=== PATIENT | female | born 1995 | race Caucasian/White ===

== ENCOUNTER 2019-10-03 00:55 | Inpatient (IN) | payer OTHER ==
[2019-10-03] MEDS ORDERED: DEXTROSE 5%-LACTATED RINGERS 500 ML IV ONE (01:30)
[2019-10-03] MEDS ORDERED: DEXTROSE 5%-LACTATED RINGERS 1,000 ML IV SCH (02:00)
[2019-10-03 02:28] LABS: BASO % 0.9 % (0-2.0); EOS % 0.5 % (0-4.5); HEMATOCRIT 36.1 % (32.4-45.2); HEMOGLOBIN 11.6 GM/dL (10.7-15.3); LYMPH % 25.4 % (8-40); MCH 27.5 pg (25.7-33.7); MCHC 32.2 g/dl (32.0-36.0); MEAN CELL VOLUME 85.2 fl (80-96); MEAN PLT VOLUME 11.1 fl (7.5-11.1); NEUT % 66.2 % (42.8-82.8); PLATELET COUNT 253 K/MM3 (134-434); RBC 4.23 M/mm3 (3.60-5.2); RDW 16.4 % (11.6-15.6); WHITE BLOOD COUNT 9.1 K/mm3 (4.0-10.0)
[2019-10-03 02:42] LABS: INR 1.02 (0.83-1.09)
[2019-10-03 02:45] LABS: ACTIVATED PTT 27.9 SECONDS (25.2-36.5)
[2019-10-03 02:50] LABS: BLOOD UREA NITROGEN 15.8 mg/dL (7-18); CALCIUM 8.6 mg/dL (8.5-10.1); CREATININE 0.8 mg/dL (0.55-1.3); POTASSIUM 4.3 mmol/L (3.5-5.1)
[2019-10-03] MEDS ORDERED: BUTORPHANOL TARTRATE 1 MG/ML VIAL IVPB ONE (03:00)
[2019-10-03] MEDS ORDERED: PROMETHAZINE HCL 25 MG/1 ML VIAL IVPB ONE (03:00)
[2019-10-03 03:28] VITALS: BMI 34.0
[2019-10-03] MEDS ORDERED: ELECTROLYTE-148 SOLN 1,000 ML IV SCH ×2 (04:00→11:30)
[2019-10-03] MEDS ORDERED: PROMETHAZINE HCL 25 MG/1 ML VIAL ONE (09:12)
[2019-10-03] MEDS ORDERED: BUTORPHANOL TARTRATE 1 MG/ML VIAL ONE ×2 (09:12)
[2019-10-03] MEDS ORDERED: LIDO 2%/EPI 1:200000 PRESRVFRE (20 ML SDVIAL) ONE ×2 (11:20→13:22)
[2019-10-03] MEDS ORDERED: BUPIVACAINE HCL/PF 0.25% (2.5MG/ML) 10 ML VIAL ONE (11:20)
[2019-10-03] MEDS ORDERED: FENTANYL/BUPIVACAINE/NS/PF - PCEA - 50 ML DISP.SYRIN EP ONE ×2 (11:21→11:23)
[2019-10-03] MEDS ORDERED: NALOXONE HCL 0.4 MG/ML VIAL IVPUSH PRN (12:05)
[2019-10-03] MEDS ORDERED: FENTANYL/BUPIVACAINE/NS/PF - PCEA - 50 ML DISP.SYRIN EP SCH (12:15)
--- NOTE | 2019-10-03 12:17 | HP ---
Past Medical History - Primary Care Physician PCP:: Parminder Johnson - Admission Chief Complaint: 23yo P0 with at EGA 40w0d admitted with spontaneous early labor and SROM since 11pm on 10/02/19. History of Present Illness: complicated by: Excessive weight gain 63 lbs during this Episodes of chest pain and SOB that resolved now. Cardiac echo was normal. Pt is now asymptomatic. History Source: Patient, Medical Record Limitations to Obtaining History: No Limitations - Past Medical History FORMULATION SCIENTIST: No: Alzheimer's, CVA, Dementia, Migraine, Multiple Sclerosis, Peripheral Neuropathy, Parkinson's, Seizure, Syncope, TIA, Vertigo, Other Cardiovascular: No: AFIB, Aneurysm, Aortic Insufficiency, Aortic Stenosis, CAD, CHF, Deep Vein Thrombosis, HTN, Hyperlipdemia, RI, Mitral Insufficiency, Mitral Stenosis, Murmur, Pulmonary Hypertension, Other Pulmonary: No: Asthma, Bronchitis, Cancer, COPD, O2 Dependent, Pneumonia, Previously Intubated, Pulmonary Embolus, Pulmonary Fibrosis, Sleep Apnea, Other Gastrointestinal: No: Ascites, Cancer, Constipation, Crohn's Disease, Diverticulitis, Diverticulosis, Esophageal Varices, Gastritis, GERD, GI Bleed, Hemorrhoids, Hiatal Hernia, Inflamatory Bowel Disease, Irritable Bowel Disease, Pancreatitis, Peptic Ulcer Disease, Ulcerative Colitis, Other Hepatobiliary: No: Cirrhosis, Cholelithiasis, Cholecystitis, Choledocholithiasis , Hepatitis A, Hepatitis B, Hepatitis C, Other Renal/: No: Renal Failure, Renal Inusuff, BPH, Cancer, Hematuria, Hemodialysis , Neurogenic Bladder, Renal Calculi, UTI, Other Reproductive: No: Ectopic , Endometriosis, Fibroids, PID, Polycystic Ovary Syndrome, Postmenopausal, Other ...: 1 ...Para: 0 ...LMP: 12/29/18 ... Weeks Gestation by Dates: 39.6 ...EDC by Dates: 10/05/19 ...EDC by Sono: 10/04/19 Heme/Onc: No: Anemia, B12 Deficiency, Bleeding Disorder, Cancer, Current Chemotherapy, Current Radiation Therapy, Hemochromatosis, Hypercoaguable State, Myeloproliferative Synd, Sickle Cell Disease, Sickle Cell Trait, Thrombocytopenia, Other Infectious Disease: No: AIDS, C-Diff, Herpes Zoster, HIV, MRSA, STD's, Tuberculosis, VREF, Other Psych: No: Addictions, Anxiety, Bipolar, Depression, Panic, Psychosis, Schizophrenia, Other Musculoskeletal: No: Bursitis, Chronic low back pain, Hemiparesis, Hemiplegia, Osteoarthritis, Paraplegia, Other Rheumatology: No: Fibromyalgia, Gout, Lupus, Rheumatoid Arthritis, Sarcoidosis, Vasculitis, Other ENT: No: Allergic Rhinitis, Sinusitis, Other Endocrine: No: [place]'s Disease, [place]'s Disease, Diabetes Insipidus, Diabetes Mellitus, Hyperparathyroidism, Hyperthyroidism, Hypothyroidism, Osteopenia, SIADH, Other Dermatology: No: Basal Cell, Cellulitis, Eczema, Melanoma, Psoriasis, Squamous Cell, Other - Past Surgical History Past Surgical History: Yes: None Hx Myomectomy: No Hx Transabdominal Cerclage: No - Smoking History Smoking history: Never smoked Have you smoked in the past 12 months: No - Alcohol/Substance Use Hx Alcohol Use: No History of Substance Use: reports: None - Social History Usual Living Arrangement: Yes: With Parent Do you think of yourself as: Straight/Heterosexual ADL: Independent History of Recent Travel: No Home Medications - Allergies Allergies/Adverse Reactions: Allergies Allergy/AdvReac Type Severity Reaction Status Date / Time No Known Allergies Allergy Verified 10/03/19 02:01 - Home Medications Home Medications: Ambulatory Orders Prenat 115/Iron Fum/Folic/Dss [ 19 Tablet] 1 tab PO DAILY 08/17/19 Family Medical History Family Hx Nuerologic Problems: Mother Review of Systems Findings/Remarks: Pt is well appearing. pt was very uncomfortable before epidural was started, had vomiting few times. She now feels well, no vomiting, no pain, no complaints. - Review of Systems Constitutional: reports: No Symptoms, Other (Labor pains) Eyes: reports: No Symptoms HENT: reports: No Symptoms Neck: reports: No Symptoms Cardiovascular: reports: No Symptoms Respiratory: reports: No Symptoms Gastrointestinal: reports: No Symptoms Genitourinary: reports: No Symptoms Breasts: reports: No Symptoms Reported Musculoskeletal: reports: No Symptoms Integumentary: reports: No Symptoms Neurological: reports: No Symptoms Endocrine: reports: No Symptoms Hematology/Lymphatic: reports: No Symptoms Psychiatric: reports: No Symptoms Pain Intensity: 0 (s/p epidural) Physical Exam - Maternity Vital Signs: Vital Signs Temperature 98.1 F 10/03/19 10:00 Pulse Rate 72 10/03/19 11:00 Respiratory Rate 18 10/03/19 11:00 Blood Pressure 116/62 10/03/19 11:00 O2 Sat by Pulse Oximetry (%) Constitutional: Yes: Well Nourished, No Distress, Calm Eyes: Yes: WNL, Conjunctiva Clear HENT: Yes: WNL, Atraumatic, Normocephalic Neck: Yes: WNL, Supple, Trachea Midline Cardiovascular: Yes: WNL, Regular Rate and Rhythm Lungs: Clear to auscultation, Normal air movement - Abdominal Exam/OB Fundal Height: 40 Number of Fetuses: Single Presentation: Vertex (Gyncoid pelvimetry) Contractions: Yes Regularity: Irregular Intensity: Unaware (s/p epidural) Monitor Mode: External Heart Rate (range): 135 Heart Rate Location: Midline Category: I Accelerations: Uniform Decelerations: None - Vaginal Exam/OB Vaginal Bleediing: No Speculum Exam: No Dilatation (cm): 3 Effacement (%): 50 Amniotic Membrane Status: Leaking Amniotic Fluid: Yes: Clear Presentation: Vertex/Position (Adequate gynecoid pelvimetry) Station: -4 - Physical Exam Musculoskeletal: Yes: WNL Extremities: Yes: WNL Edema: Yes Edema: LLE: Trace, RLE: Trace Integumentary: Yes: WNL Deep Tendon Reflex Grade: Normal +2 ...Motor Strength: WNL Psychiatric: Yes: WNL, Alert, Oriented - Labs Lab Results: CBC, BMP 10/03/19 02:10 10/03/19 02:10 Hemorrhage Risk Assessment - Risk Factors Medium Risk Factors: Yes: None High Risk Factors: Yes: None Risk Score: 1 Risk Level: Medium Risk Imaging - Results Ultrasound: Report Reviewed Assessment/Plan 23yo P0 with at EGA 40w0d admitted with spontaneous early labor and SROM since 11pm on 10/02/19. Fetus with Category I tracing and does not require intervention. Labor is in latent phase and contractions are irregular, spread out. We discussed mgt options, labour augmentation, risks, benefits, alternatives. I explained the options of expectant management awaiting spontaneous labor, induction of labor, and elective section. The risks of uterine tachysystole, distress, uterine rupture, need for emergency C/S , hemorrhage, infection, scarring, etc. were discussed. We also discussed the risks of meconium aspiration, shoulder dystocia, and anesthesia options. The pt requested to proceed with pitocin for augmentation. Pt with gynecoid pelvis. Plan to monitor labor progress.
[2019-10-03] MEDS ORDERED: OXYTOCIN 30 UNITS in 0.9% NS 30 UNIT/500 ML INFUS.BAG IVPB SCH (12:30)
[2019-10-03] MEDS ORDERED: OXYTOCIN 30 UNITS in 0.9% NS 30 UNIT/500 ML INFUS.BAG IVPB ONE (12:52)
[2019-10-03] MEDS ORDERED: TERBUTALINE SULFATE 1 MG/1 ML VIAL SQ ONE (13:11)
[2019-10-03] MEDS ORDERED: ONDANSETRON 4 MG/2 ML VIAL IVPUSH PRN (13:48)
[2019-10-03] MEDS ORDERED: MIDAZOLAM HCL 2 MG/2 ML SINGLE DOSE VIAL ONE (13:51)
[2019-10-03] MEDS ORDERED: PHENYLEPHRINE HCL 10 MG/1 ML SINGLE DOSE VIAL ONE (14:32)
[2019-10-03] MEDS ORDERED: OXYTOCIN 10 UNITS/ML VIAL ONE ×4 (14:32)
[2019-10-03] MEDS ORDERED: ceFAZolin SODIUM 1 GM VIAL ONE (14:32)
[2019-10-03] MEDS ORDERED: OXYTOCIN 20 UNITS in 0.9% NS 20 UNIT/1,000 ML INFUS.BAG IV ONE (15:07)
--- NOTE | 2019-10-03 16:43 | PN ---
Progress Note (short form) - Note Progress Note: Pt was started on pitocin to augment contractions at 13:00. She developed a bradycardia down to 37bpm at 13:05. The pt was examined and noted to be 3cm/50%/-4. The resuscitation was done and pitocin was turned off at 13:05. The patient was turned to right--> left --> right, etc. lateral positions, O2 by face mask given, IV bolus administered. The pt was noted to have a likely prolonged contraction and Terbutaline 0.25mg SubQ x 1 given at 13:10. The contraction began to improve and the FHR increased to 70's, and then to 100- 105. The decision was made to proceed with emergency C/S at 13:12. The pt was moved to the OR at 13:20. The FHR was checked in the OR preop and was ~125 bpm. A primary LT C/S was done w/o complications. Total time of bradycardia ~10-15 min.
[2019-10-03] MEDS ORDERED: BENZOCAINE 28 GM HEMORRHOIDAL OINTMENT TP PRN (17:05)
[2019-10-03] MEDS ORDERED: BENZOCAINE 20% 57 GM BOTTLE TP PRN (17:05)
[2019-10-03] MEDS ORDERED: WITCH HAZEL 50% (TUCKS) 40 PAD/JAR PAD TP PRN (17:05)
[2019-10-03] MEDS ORDERED: METHYLERGONOVINE MALEATE 0.2 MG/1 ML AMP IM PRN (17:05)
[2019-10-03] MEDS ORDERED: IBUPROFEN 600 MG TABLET (FP) PO PRN (17:05)
[2019-10-03] MEDS ORDERED: oxyCODONE HCL 5 MG TABLET PO ONE (17:10)
--- NOTE | 2019-10-03 17:14 | OP ---
Operative Note - Note: Operative Date: 10/03/19 Pre-Operative Diagnosis: at EGA 40wks with bradycardia Operation: Primary LT C/S Findings: Live baby boy in vtx presentation, no meconium in amniotic fluid. Normal uterus , tubes, ovaries. 9-9. Wt 6lb 8oz. Normal appearing placenta with thin cord. Post-Operative Diagnosis: Same as Pre-op Surgeon: Parminder Johnson Seasonal Recruiter: Ramírez Brooke Anesthesiologist/PAINT BOOTH OPERATOR: Bj Clayton Anesthesia: Epidural Specimens Removed: Placenta Estimated Blood Loss (mls): 600 Drains & Tubes with Location: Leon cath Drains, Volume Out (mls): 100 Blood Volume Replaced (mls): 0 Fluid Volume Replaced (mls): 1,400 Operative Report Dictated: Yes
--- NOTE | 2019-10-03 17:16 | PN ---
Delivery - Delivery Section: Primary, Low Flap Transverse Type of Anesthesia: Epidural, Spinal Episiotomy/Laceration: None EBL (cc): 600 Delivery, Single - Stages of Labor Date 1st Stage Initiatied: 10/03/19 Time 1st Stage Initiated: 02:00 Date of Delivery: 10/03/19 Time of Delivery: 13:48 Time Placenta Delivered: 13:49 Placenta: Yes: Expressed, Normal Configuration - Condition of Infant Bacteriologist Medical/Cp Bleacher Operator Present: Yes Name: Calvin Landa Infant Gender: Male Weight: 2.948 kg Position: Left, OT Total Hours ROM (Hrs/Mins): 14h 18 min - 1 Minute Total Score: 9 5 Minutes Total Score: 9 - [place] Feeding Plan Initial Plan: Exclusive throughout hospitalization Benefits of Exclusively reinforced: Yes
[2019-10-03] MEDS: IBUPROFEN 800 MG/8 ML IJ IVPB PRN (20:03)
[2019-10-03] MEDS: OXYTOCIN 20 UNITS in 0.9% NS 20 UNIT/1,000 ML INFUS.BAG IV SCH (21:14)
[2019-10-04] MEDS: IBUPROFEN 600 MG TABLET (FP) PO PRN ×2 (00:14→18:56)
[2019-10-04] MEDS: OXYTOCIN 20 UNITS in 0.9% NS 20 UNIT/1,000 ML INFUS.BAG IV SCH (02:42)
[2019-10-04] MEDS: IBUPROFEN 800 MG/8 ML IJ IVPB PRN (05:04)
[2019-10-04] MEDS: oxyCODONE HCL 5 MG TABLET PO PRN ×4 (09:30→23:36)
[2019-10-04] MEDS: ACETAMINOPHEN 325 MG TABLET (FP) PO PRN ×3 (09:31→23:37)
[2019-10-04] MEDS: ENOXAPARIN NA (PORCINE) 40 MG/0.4 ML DISP.SYRIN SQ SCH (09:32)
[2019-10-04] MEDS: PRENATAL VITAMINS W/ FOLIC ACID TABLET (FP) PO SCH (09:36)
--- NOTE | 2019-10-04 09:37 | PN ---
Progress Note (short form) - Note Progress Note: Pot op day#1.S/p C Section under spinal anesthesia with Duramorph uneventful.Patient stable and c/o little pain for which she is on medication.No any anesthesia related problem.Patient DC from the anesthesia care.
[2019-10-04 10:54] LABS: BASO % 0.2 % (0-2.0); EOS % 0.1 % (0-4.5); HEMATOCRIT 33.1 % (32.4-45.2); HEMOGLOBIN 10.4 GM/dL (10.7-15.3); LYMPH % 9.7 % (8-40); MCH 26.7 pg (25.7-33.7); MCHC 31.5 g/dl (32.0-36.0); MEAN CELL VOLUME 84.6 fl (80-96); MEAN PLT VOLUME 10.2 fl (7.5-11.1); MONO % 3.8 % (3.8-10.2); NEUT % 86.2 % (42.8-82.8); PLATELET COUNT 211 K/MM3 (134-434); RBC 3.91 M/mm3 (3.60-5.2); RDW 16.3 % (11.6-15.6); WHITE BLOOD COUNT 12.8 K/mm3 (4.0-10.0)
[2019-10-04] MEDS: SIMETHICONE 80 MG TAB.CHEW (FP) PO PRN ×2 (15:03→18:45)
--- NOTE | 2019-10-04 15:05 | OP ---
DATE OF OPERATION: 10/03/2019 PREOPERATIVE DIAGNOSIS: at estimated gestational age of 40 weeks with bradycardia and distress. POSTOPERATIVE DIAGNOSIS: at estimated gestational age of 40 weeks with bradycardia and distress. PROCEDURE: Primary low-transverse section via Pfannenstiel skin incision. SURGEON: Parminder Johnson MD LUG LOADER: Ramírez Brooke MD ANESTHESIOLOGIST: Bj Clayton MD ANESTHESIA: Epidural. COMPLICATIONS: None. PATHOLOGY: Placenta. ESTIMATED BLOOD LOSS: 600 mL. INTRAVENOUS FLUIDS: 1400 mL. URINE OUTPUT: 100 mL clear fluid at the end of the procedure. FINDINGS: Live baby boy in vertex presentation. No meconium in amniotic fluids. Normal uterus, tubes and ovaries were observed. Baby's Apgars are 9 and 9. Baby's weight is 6 pounds 8 ounces. Normal-appearing placenta with a thin umbilical cord with minimal to no Malvin's jelly. PROCEDURE: The patient was met preoperatively. Risks, benefits, and alternatives of surgery were discussed. All questions were answered. The consent form was reviewed and signed. The patient verbalized understanding. The patient was then moved to the OR. She was placed on a surgical table in the supine position with leftward tilt. Epidural anesthesia was bolused and the level was found to be adequate. The patient was then prepped and draped in the usual sterile fashion. A Leon catheter was left to drain to gravity. The timeout was conducted as per standard protocol. A Pfannenstiel skin incision was then made with a knife. The incision was carried down to the level of fascia. The fascia was incised in the midline. The incision was extended bilaterally with Garcia scissors. The fascia was then dissected away from the rectus muscles superiorly and inferiorly. The rectus muscles were in the midline using blunt dissection. The peritoneum was identified and entered blindly. The peritoneal incision was extended superiorly and inferiorly with Metzenbaum scissors. The bladder peritoneum was dissected away from the lower uterine segment. The bladder was reflected downwards. The uterus was incised transversely in the lower uterine segment. The incision was extended bilaterally using blunt dissection. The baby was delivered from vertex presentation and without complications. The nose and mouth were suctioned on peritoneum. The baby was crying spontaneously and was handed to the awaiting construction cost estimator. The umbilical cord was secured for umbilical cord blood gas. The placenta was then extracted and the uterus was exteriorized. The uterine cavity was cleared of all clots and debris. The uterine incision was repaired using a 0 Biosyn suture with a running locking stitch. Good hemostasis was noted. The uterus was then replaced back into the abdominal cavity. The uterine incision was imbricated using a secondary layer of closure with a 0 Biosyn suture. Once again good hemostasis was noted. The bladder peritoneum was reapproximated using a 2-0 chromic suture. The parietal peritoneum was also reapproximated using a 2-0 chromic suture. The rectus muscles were approximated in the midline using several interrupted 2-0 chromic sutures. The fascia was closed with a 0 Vicryl suture in a running stitch, good hemostasis, and approximation was confirmed. The subcutaneous adipose tissues and Rip's fascia were approximated using several interrupted 2-0 Vicryl sutures. The skin was closed with a subcutaneous stitch using a 4-0 Biosyn suture. Sponge, lap, needle counts were correct. The patient tolerated the procedure well. She was transferred to recovery room in stable condition and awake. Juan C [id number]
--- NOTE | 2019-10-04 15:13 | PN ---
Post Progress Note - Subjective Subjective: Patient without acute complaints. Reports tolerating oral intake without nausea or vomiting. Ambulating without dizziness. Denies fevers or chills. Pain well controlled with oral pain medication. Pumping/breast feeding without issue. Not passing flatus yet, no BM. Post Day: 1 Type of Delivery: Primary C/S Vital Signs: Vital Signs Temperature 97.6 F 10/04/19 14:00 Pulse Rate 92 H 10/04/19 14:00 Respiratory Rate 20 10/04/19 14:00 Blood Pressure 134/75 10/04/19 14:00 O2 Sat by Pulse Oximetry (%) 98 10/03/19 21:00 Breast Exam: Yes: Soft Uterus: Yes: Fundus Firm, Fundus below umbilicus, Non-tender Incision: Yes: Dressing dry and intact Abdomen/GI: Yes: Abdomen soft, Tolerating PO Lochia: Yes: Rubra Lochia, amount: Small Extremities: Yes: Calves non-tender Perineum: Yes: Intact Activity: Ambulating - Labs Labs: CBC WBC 12.8 K/mm3 (4.0-10.0) H 10/04/19 10:08 RBC 3.91 M/mm3 (3.60-5.2) 10/04/19 10:08 Hgb 10.4 GM/dL (10.7-15.3) L 10/04/19 10:08 Hct 33.1 % (32.4-45.2) 10/04/19 10:08 MCV 84.6 fl (80-96) 10/04/19 10:08 MCH 26.7 pg (25.7-33.7) 10/04/19 10:08 MCHC 31.5 g/dl (32.0-36.0) L 10/04/19 10:08 RDW 16.3 % (11.6-15.6) H 10/04/19 10:08 Plt Count 211 K/MM3 (134-434) 10/04/19 10:08 MPV 10.2 fl (7.5-11.1) 10/04/19 10:08 Absolute Neuts (auto) 11.0 K/mm3 (1.5-8.0) H 10/04/19 10:08 Neutrophils % 86.2 % (42.8-82.8) H D 10/04/19 10:08 Lymphocytes % 9.7 % (8-40) D 10/04/19 10:08 Monocytes % 3.8 % (3.8-10.2) 10/04/19 10:08 Eosinophils % 0.1 % (0-4.5) 10/04/19 10:08 Basophils % 0.2 % (0-2.0) 10/04/19 10:08 Nucleated RBC % 0 % (0-0) 10/04/19 10:08 Assessment/Plan 23yo P1 s/p primary LT C/S, doing well stable, afebrile. The pt is asymptomatic for s/sxs of anemia. Advance diet as tolerated. care instructions reviewed. Continue routine postop care. Ambulation encouraged.
[2019-10-04] MEDS ORDERED: BISACODYL 10 MG SUPP.RECT RC PRN (17:05)
[2019-10-05] MEDS ORDERED: diphenhydrAMINE HCL 25 MG CAPSULE (FP) PO ONE (00:30)
[2019-10-05] MEDS: IBUPROFEN 600 MG TABLET (FP) PO PRN ×4 (05:27→22:13)
[2019-10-05] MEDS: ACETAMINOPHEN 325 MG TABLET (FP) PO PRN (10:18)
[2019-10-05] MEDS: PRENATAL VITAMINS W/ FOLIC ACID TABLET (FP) PO SCH (10:18)
[2019-10-05] MEDS: ENOXAPARIN NA (PORCINE) 40 MG/0.4 ML DISP.SYRIN SQ SCH (10:18)
--- NOTE | 2019-10-05 10:18 | PN ---
Post Progress Note - Subjective Subjective: Patient without acute complaints. Reports tolerating oral intake without nausea or vomiting. Ambulating without dizziness. Denies fevers or chills. Pain well controlled with oral pain medication. Pumping/breast feeding without issue. Passing flatus. Pt with several episodes of anxiety and crying. She is well now and reports no problems Seen by a Contract Negotiator and plan to obtain a psych consult to assess for mood d/ o prior to discharge. pt was adivsed to f/u in office w/in 1 week. Post Day: 2 Type of Delivery: Primary C/S Vital Signs: Vital Signs Temperature 97.8 F 10/04/19 20:59 Pulse Rate 88 10/04/19 20:59 Respiratory Rate 20 10/04/19 20:59 Blood Pressure 133/87 10/04/19 20:59 O2 Sat by Pulse Oximetry (%) 98 10/04/19 20:59 Breast Exam: Yes: Soft Uterus: Yes: Fundus Firm, Fundus below umbilicus, Non-tender Incision: Yes: Sutures intact Abdomen/GI: Yes: Abdomen soft, Tolerating PO Lochia: Yes: Rubra Lochia, amount: Small Extremities: Yes: Calves non-tender Perineum: Yes: Intact Activity: Ambulating - Labs Labs: CBC WBC 12.8 K/mm3 (4.0-10.0) H 10/04/19 10:08 RBC 3.91 M/mm3 (3.60-5.2) 10/04/19 10:08 Hgb 10.4 GM/dL (10.7-15.3) L 10/04/19 10:08 Hct 33.1 % (32.4-45.2) 10/04/19 10:08 MCV 84.6 fl (80-96) 10/04/19 10:08 MCH 26.7 pg (25.7-33.7) 10/04/19 10:08 MCHC 31.5 g/dl (32.0-36.0) L 10/04/19 10:08 RDW 16.3 % (11.6-15.6) H 10/04/19 10:08 Plt Count 211 K/MM3 (134-434) 10/04/19 10:08 MPV 10.2 fl (7.5-11.1) 10/04/19 10:08 Absolute Neuts (auto) 11.0 K/mm3 (1.5-8.0) H 10/04/19 10:08 Neutrophils % 86.2 % (42.8-82.8) H D 10/04/19 10:08 Lymphocytes % 9.7 % (8-40) D 10/04/19 10:08 Monocytes % 3.8 % (3.8-10.2) 10/04/19 10:08 Eosinophils % 0.1 % (0-4.5) 10/04/19 10:08 Basophils % 0.2 % (0-2.0) 10/04/19 10:08 Nucleated RBC % 0 % (0-0) 10/04/19 10:08 Assessment/Plan 23yo P1 s/p primary LT C/S, doing well stable, afebrile. The pt is asymptomatic for s/sxs of anemia. Advance diet as tolerated. care instructions reviewed. Continue routine postop care. Pt was seen by Contract Negotiator and Psych eval was recommended. Pt was advised to f/u in-office within 1 week of discharge. depression discussed and s/sx's reviewed. Ambulation encouraged.
[2019-10-05] MEDS: SIMETHICONE 80 MG TAB.CHEW (FP) PO PRN ×2 (10:19→17:54)
[2019-10-05] MEDS: oxyCODONE HCL 5 MG TABLET PO PRN ×3 (10:19→22:12)
--- NOTE | 2019-10-05 10:23 | DS ---
Physical Exam-DIRECTOR OF SPA AND GUEST EXPERIENCE Vital Signs: Vital Signs Temperature 97.8 F 10/04/19 20:59 Pulse Rate 88 10/04/19 20:59 Respiratory Rate 20 10/04/19 20:59 Blood Pressure 133/87 10/04/19 20:59 O2 Sat by Pulse Oximetry (%) 98 10/04/19 20:59 Constitutional: Yes: Well Nourished, No Distress, Calm Eyes: Yes: WNL, Conjunctiva Clear, EOM Intact HENT: Yes: WNL, Atraumatic, Normocephalic Neck: Yes: WNL, Supple, Trachea Midline Cardiovascular: Yes: WNL, Regular Rate and Rhythm Respiratory: Yes: WNL, Regular, CTA Bilaterally Gastrointestinal: Yes: WNL, Normal Bowel Sounds, Soft ...Rectal Exam: Yes: Deferred Renal/: Yes: WNL External Genitalia: Yes: Normal Internal Exam Deferred: Yes ....Post : Yes: Uterus firm, Uterus non-tender, Slight lochia rubra Breast(s): Yes: WNL Musculoskeletal: Yes: WNL Extremities: Yes: WNL Edema: Yes Edema: LLE: Trace, RLE: Trace Integumentary: Yes: WNL Wound/Incision: Yes: Clean/Dry, Well Approximated, Sutures Intact, Steri Strips , Open to air Neurological: Yes: WNL, Alert, Oriented ...Motor Strength: WNL Psychiatric: Yes: WNL, Alert, Oriented Labs: CBC, BMP 10/04/19 10:08 10/03/19 02:10 Delivery - Delivery Section: Primary, Low Flap Transverse Type of Anesthesia: Epidural, Spinal Episiotomy/Laceration: None EBL (cc): 600 Delivery, Single - Stages of Labor Date 1st Stage Initiatied: 10/03/19 Time 1st Stage Initiated: 02:00 Date of Delivery: 10/03/19 Time of Delivery: 13:48 Time Placenta Delivered: 13:49 Placenta: Yes: Expressed, Normal Configuration - Condition of Infant Electro Mechanical Engineer/Packaging Designer Present: Yes Name: Calvin Landa Gender: Male Weight: 2.948 kg Position: Left, OT Total Hours ROM (Hrs/Mins): 14h 18 min - 1 Minute Total Score: 9 5 Minutes Total Score: 9 - [place] Feeding Plan Initial Plan: Exclusive throughout hospitalization Benefits of Exclusively reinforced: Yes Discharge Summary Problems reviewed: Yes Reason For Visit: ADMIT LABOR Spont labor at term bradycadia and distress Procedures: Principal: Primary LT C/S Hospital Course: Normal postoperative recovery Maternal Anxiety Goals: Full recovery, healthy mom and baby Condition: Good - Instructions Diet, Activity, Other Instructions: Physical activity Resume your normal everyday activity as tolerated no heavy lifting or exercise until seen by your surgeon. You may walk unlimited neri of and climb stairs. You may resume driving the car when you feel safe and comfortable behind the wheel. No sexual activity as instructed. Wound care If you have a bandage, leave it on, and keep dry for 48-72 hours. After that time discard the outer bandage. If they are tapes on the skin under the out of bandage leave them in place. They will peel off in the next 7 to 10 days. Do Not Peel them off. You may shower the day after surgery. If there are tapes present on the skin, you may shower over them. Diet There are no dietary restrictions. Eat healthy, high-fiber foods. Drink 6 to 8 glasses of liquid each day. This will assist in keeping your bowels are regular. Pain management You may take Tylenol or acetaminophen or Ibuprofen (for example, Motrin, Advil etc.) from my pain prescription medication is ordered should be taken as prescribed for moderate to severe pain. Call MD for any of the following: Severe pain not relieved by medication Fever of 101 or higher Excessive bleeding or drainage on dressing Inability to urinate Referrals: Parminder Johnson MD [Staff Physician] - Disposition: HOME - Home Medications Comprehensive Discharge Medication List: Ambulatory Orders Prenat 115/Iron Fum/Folic/Dss [ 19 Tablet] 1 tab PO DAILY 08/17/19 Prescription Drug Monitoring Program (I-STOP) results: I-STOP not reviewed
[2019-10-05 12:50] LABS: POC NITRAZINE NEG
[2019-10-05 12:51] LABS: POC NITRAZINE POS
[2019-10-06] MEDS: IBUPROFEN 600 MG TABLET (FP) PO PRN ×4 (02:13→18:36)
[2019-10-06] MEDS: oxyCODONE HCL 5 MG TABLET PO PRN ×4 (02:14→18:36)
[2019-10-06 08:20] LABS: BASO % 0.4 % (0-2.0); EOS % 1.2 % (0-4.5); HEMOGLOBIN 10.6 GM/dL (10.7-15.3); LYMPH % 20.7 % (8-40); MCH 27.2 pg (25.7-33.7); MCHC 32.2 g/dl (32.0-36.0); MEAN CELL VOLUME 84.5 fl (80-96); MEAN PLT VOLUME 9.8 fl (7.5-11.1); MONO % 5.5 % (3.8-10.2); NEUT % 72.2 % (42.8-82.8); PLATELET COUNT 260 K/MM3 (134-434); RDW 16.5 % (11.6-15.6); WHITE BLOOD COUNT 9.4 K/mm3 (4.0-10.0)
[2019-10-06] MEDS: SIMETHICONE 80 MG TAB.CHEW (FP) PO PRN ×3 (08:22→18:36)
[2019-10-06] MEDS: PRENATAL VITAMINS W/ FOLIC ACID TABLET (FP) PO SCH (10:57)
[2019-10-06] MEDS: ENOXAPARIN NA (PORCINE) 40 MG/0.4 ML DISP.SYRIN SQ SCH (10:58)
--- NOTE | 2019-10-06 11:59 | PN ---
Progress Note (short form) - Note Progress Note: Asked to see this patient to assist in her discharge. She was seen in her room, baby at side, and also her significant other. She was awake, alert, smiling appropriately good eye contact. Patient states that this is the first baby and she had plans that everything will go as plan and she ended up with a C Section. She does admit to feeling anxious at times ryan, now that she perceives that she had had a traumatic delivery and experience. She has no psychiatric history, no psychiatric meds, no history of suicial attempt. She lives with her mother and is in good spirits at this time, She wants more lessons on breast feeding and would like to stayone more day, Imp. She can be discharged as per medical team Follow up with [facility] noted Signs of post depression reviewed with her and her significant other
[2019-10-07] MEDS: IBUPROFEN 600 MG TABLET (FP) PO PRN ×3 (03:22→12:37)
[2019-10-07] MEDS: SIMETHICONE 80 MG TAB.CHEW (FP) PO PRN ×3 (03:22→12:37)
[2019-10-07] MEDS: oxyCODONE HCL 5 MG TABLET PO PRN ×2 (03:23→08:42)
--- NOTE | 2019-10-07 08:58 | PN ---
Post Progress Note - Subjective Subjective: No complaints Post Day: 4 Type of Delivery: Primary C/S Vital Signs: Vital Signs Temperature 98.1 F 10/06/19 22:00 Pulse Rate 82 10/06/19 22:00 Respiratory Rate 20 10/06/19 22:00 Blood Pressure 130/89 10/06/19 22:00 O2 Sat by Pulse Oximetry (%) 98 10/05/19 21:00 Breast Exam: Yes: Soft Uterus: Yes: Fundus Firm, Fundus below umbilicus, Non-tender Incision: Yes: Sutures intact Abdomen/GI: Yes: Abdomen soft, Passing flatus, Tolerating PO Lochia: Yes: Rubra Lochia, amount: Small Extremities: Yes: Calves non-tender Perineum: Yes: Intact Activity: Ambulating - Labs Labs: CBC WBC 9.4 K/mm3 (4.0-10.0) 10/06/19 07:37 RBC 3.90 M/mm3 (3.60-5.2) 10/06/19 07:37 Hgb 10.6 GM/dL (10.7-15.3) L 10/06/19 07:37 Hct 33.0 % (32.4-45.2) 10/06/19 07:37 MCV 84.5 fl (80-96) 10/06/19 07:37 MCH 27.2 pg (25.7-33.7) 10/06/19 07:37 MCHC 32.2 g/dl (32.0-36.0) 10/06/19 07:37 RDW 16.5 % (11.6-15.6) H 10/06/19 07:37 Plt Count 260 K/MM3 (134-434) D 10/06/19 07:37 MPV 9.8 fl (7.5-11.1) 10/06/19 07:37 Absolute Neuts (auto) 6.8 K/mm3 (1.5-8.0) 10/06/19 07:37 Neutrophils % 72.2 % (42.8-82.8) 10/06/19 07:37 Lymphocytes % 20.7 % (8-40) D 10/06/19 07:37 Monocytes % 5.5 % (3.8-10.2) 10/06/19 07:37 Eosinophils % 1.2 % (0-4.5) D 10/06/19 07:37 Basophils % 0.4 % (0-2.0) 10/06/19 07:37 Nucleated RBC % 0 % (0-0) 10/06/19 07:37 Assessment/Plan 23yo P1 s/p primary LT C/S, doing well stable, afebrile. The pt is asymptomatic for s/sxs of anemia. care instructions reviewed. Postop care reviewed. FRONT END WHEEL LOADER OPERATOR and Psych eval noted. Pt was advised to f/u in-office within 1 week of discharge. depression discussed and s/sx's reviewed. Ambulation encouraged.
[2019-10-07] MEDS: PRENATAL VITAMINS W/ FOLIC ACID TABLET (FP) PO SCH (09:40)
[2019-10-07] MEDS: ENOXAPARIN NA (PORCINE) 40 MG/0.4 ML DISP.SYRIN SQ SCH (09:40)
[2019-10-07] MEDS: ACETAMINOPHEN 325 MG TABLET (FP) PO PRN (12:37)
[2019-10-07 13:43] VITALS: BP 128/88; PULSE 78; TEMP 98.5
== END 2019-10-07 18:50 | disposition home health service (06) | DRG 540 ==
LOC: JDEL 00:55 → JLDR 03:00 → J3W 17:11
PROVIDERS: ADMIT Obstetrics & Gynecology; ATTEND Obstetrics & Gynecology
PROC: 10D00Z1 Extraction of Products of Conception, Low, Open Approach (ICD-10-PCS; principal; 2019-10-03)
DX: O36.8330 Maternal care for abnormalities of the fetal heart rate or rhythm, third trimester, not applicable or unspecified (principal); O99.013 Anemia complicating pregnancy, third trimester; O99.344 Other mental disorders complicating childbirth; Z3A.40 40 weeks gestation of pregnancy; F41.8 Other specified anxiety disorders; Z37.0 Single live birth
CPT/HCPCS: 36415; 36600; 80048; 82803; 83986-QW; 85025; 85610; 85730; 86593; 86850; 86900; 86901

== ENCOUNTER 2021-01-20 15:11 | Inpatient (IN) | payer OTHER ==
[2021-01-20] MEDS ORDERED: AMPICILLIN - 2 GM in SODIUM CHLORIDE 100 ML IVPB ONE (19:14)
[2021-01-20 19:59] VITALS: BMI 33.7
[2021-01-20] MEDS ORDERED: AMPICILLIN SODIUM 2 GM VIAL ONE (20:00)
[2021-01-20] MEDS: ELECTROLYTE-148 SOLN 1,000 ML IV SCH (20:10)
[2021-01-20 20:35] LABS: BASO % 0.3 % (0-2.0); EOS % 0.5 % (0-4.5); HEMATOCRIT 33.7 % (32.4-45.2); HEMOGLOBIN 10.7 GM/dL (10.7-15.3); LYMPH % 19.8 % (8-40); MCH 25.2 pg (25.7-33.7); MCHC 31.7 g/dl (32.0-36.0); MEAN CELL VOLUME 79.6 fl (80-96); MEAN PLT VOLUME 10.2 fl (7.5-11.1); MONO % 5.9 % (3.8-10.2); NEUT % 73.5 % (42.8-82.8); PLATELET COUNT 247 10^3/uL (134-434); RBC 4.23 M/mm3 (3.60-5.2); RDW 16.9 % (11.6-15.6); WHITE BLOOD COUNT 8.7 K/mm3 (4.0-10.0)
[2021-01-20 20:43] LABS: INR 1.03 (0.83-1.09); PROTHROMBIN TIME (PATIENT) 12.5 SEC (9.7-13.0)
[2021-01-20 20:45] LABS: ACTIVATED PTT 23.7 SECONDS (25.2-36.5)
[2021-01-20 21:09] LABS: BLOOD UREA NITROGEN 12.6 mg/dL (7-18); CALCIUM 8.4 mg/dL (8.5-10.1)
[2021-01-20 21:13] LABS: CREATININE 0.6 mg/dL (0.55-1.3)
[2021-01-21] MEDS: AMPICILLIN - 1 GM in SODIUM CHLORIDE 100 ML IVPB SCH ×2 (00:34→05:03)
[2021-01-21] MEDS ORDERED: CITRIC ACID/SODIUM CITRATE 30 ML UNIT-DOSE CUP PO ONE (00:44)
[2021-01-21] MEDS ORDERED: OXYTOCIN 20 UNITS in 0.9% NS 20 UNIT/1,000 ML INFUS.BAG IV ONE ×2 (00:45→04:07)
[2021-01-21] MEDS ORDERED: morphine SULFATE/PF 0.5 MG/ML (2cc Syringe - QUVA) ONE (00:47)
[2021-01-21] MEDS ORDERED: PROPOFOL 20 ML ONE (00:48)
[2021-01-21] MEDS ORDERED: ceFAZolin SODIUM 1 GM VIAL ONE (00:48)
[2021-01-21] MEDS ORDERED: PHENYLEPHRINE HCL 10 MG/1 ML SINGLE DOSE VIAL ONE (00:48)
[2021-01-21] MEDS ORDERED: SODIUM CHLORIDE 0.9% P/F 10 ML VIAL IJ ONE (00:51)
[2021-01-21] MEDS ORDERED: ePHEDrine SULFATE 50 MG/1 ML AMPULE ONE (00:58)
[2021-01-21] MEDS ORDERED: morphine SULFATE/PF 0.5 MG/ML (2cc Syringe - QUVA) SPIN ONE (01:08)
[2021-01-21] MEDS ORDERED: ONDANSETRON 4 MG/2 ML VIAL IVPUSH PRN (01:08)
[2021-01-21] MEDS ORDERED: OXYTOCIN 10 UNITS/ML VIAL ONE ×2 (01:57→02:01)
[2021-01-21] MEDS ORDERED: KETOROLAC TROMETHAMINE 30 MG/1 ML VIAL ONE (02:05)
[2021-01-21] MEDS ORDERED: ONDANSETRON 4 MG/2 ML VIAL ONE (02:05)
[2021-01-21] MEDS: OXYTOCIN 20 UNITS in 0.9% NS 20 UNIT/1,000 ML INFUS.BAG IV SCH (03:00)
[2021-01-21 03:12] LABS: CORD BASE EXCESS -3.5 mmol/L (0-2); CORD PCO2 36.8 mmHg (30-78); CORD pH 7.374 (7.14-7.44)
[2021-01-21 03:13] LABS: CORD BASE EXCESS -2.8 mmol/L (0-2); CORD HCO3 22.5 mmHg (20-29); CORD PCO2 41.1 mmHg (30-78); CORD pH 7.356 (7.14-7.44)
[2021-01-21] MEDS ORDERED: METHYLERGONOVINE MALEATE 0.2 MG/1 ML AMP IM PRN (03:40)
[2021-01-21] MEDS ORDERED: IBUPROFEN 800 MG/8 ML IJ IVPB PRN (03:40)
[2021-01-21] MEDS ORDERED: WITCH HAZEL 50% (TUCKS) 40 PAD/JAR PAD TP PRN (03:40)
[2021-01-21] MEDS ORDERED: BENZOCAINE 20% 57 GM BOTTLE TP PRN (03:40)
[2021-01-21] MEDS ORDERED: BENZOCAINE 28 GM HEMORRHOIDAL OINTMENT TP PRN (03:40)
[2021-01-21] MEDS ORDERED: IBUPROFEN 600 MG TABLET (FP) PO PRN (03:40)
[2021-01-21] MEDS: FERROUS SO4 325 MG TABLET (FP) PO SCH ×2 (09:29→21:15)
[2021-01-21] MEDS: PRENATAL VITAMINS W/ FOLIC ACID TABLET (FP) PO SCH (09:29)
[2021-01-21] MEDS: SIMETHICONE 80 MG TAB.CHEW (FP) PO PRN (14:29)
[2021-01-21] MEDS: IBUPROFEN 600 MG TABLET (FP) PO PRN ×2 (14:29→21:16)
[2021-01-21] MEDS: ACETAMINOPHEN 325 MG TABLET (FP) PO PRN ×2 (14:30→21:15)
[2021-01-21] MEDS: SENNOSIDES/DOCUSATE COMBO (SENNA PLUS) TABLET (UD) PO PRN (21:15)
[2021-01-21] MEDS: oxyCODONE HCL 5 MG TABLET PO PRN (22:16)
[2021-01-22] MEDS: ACETAMINOPHEN 325 MG TABLET (FP) PO PRN ×3 (01:56→19:52)
[2021-01-22] MEDS: SIMETHICONE 80 MG TAB.CHEW (FP) PO PRN ×3 (01:56→21:51)
[2021-01-22] MEDS: oxyCODONE HCL 5 MG TABLET PO PRN ×3 (01:57→21:51)
[2021-01-22] MEDS: IBUPROFEN 600 MG TABLET (FP) PO PRN ×4 (01:57→19:52)
[2021-01-22] MEDS ORDERED: BISACODYL 10 MG SUPP.RECT RC PRN (03:40)
[2021-01-22] MEDS: FERROUS SO4 325 MG TABLET (FP) PO SCH ×2 (09:38→21:15)
[2021-01-22] MEDS: PRENATAL VITAMINS W/ FOLIC ACID TABLET (FP) PO SCH (09:38)
[2021-01-22 09:56] LABS: BASO % 0.2 % (0-2.0); EOS % 0.9 % (0-4.5); HEMATOCRIT 34.7 % (32.4-45.2); HEMOGLOBIN 10.9 GM/dL (10.7-15.3); LYMPH % 19.6 % (8-40); MCH 25.2 pg (25.7-33.7); MCHC 31.3 g/dl (32.0-36.0); MEAN CELL VOLUME 80.5 fl (80-96); MEAN PLT VOLUME 10.8 fl (7.5-11.1); MONO % 5.5 % (3.8-10.2); NEUT % 73.8 % (42.8-82.8); PLATELET COUNT 252 10^3/uL (134-434); RBC 4.31 M/mm3 (3.60-5.2); RDW 17.5 % (11.6-15.6); WHITE BLOOD COUNT 8.9 K/mm3 (4.0-10.0)
[2021-01-22] MEDS: SENNOSIDES/DOCUSATE COMBO (SENNA PLUS) TABLET (UD) PO PRN (19:52)
[2021-01-23] MEDS: oxyCODONE HCL 5 MG TABLET PO PRN (02:22)
[2021-01-23] MEDS: ACETAMINOPHEN 325 MG TABLET (FP) PO PRN ×5 (02:23→19:45)
[2021-01-23] MEDS: SIMETHICONE 80 MG TAB.CHEW (FP) PO PRN ×3 (02:24→19:44)
[2021-01-23] MEDS: IBUPROFEN 600 MG TABLET (FP) PO PRN ×4 (05:56→19:44)
[2021-01-23] MEDS: FERROUS SO4 325 MG TABLET (FP) PO SCH ×2 (10:16→21:39)
[2021-01-23] MEDS: PRENATAL VITAMINS W/ FOLIC ACID TABLET (FP) PO SCH (10:16)
[2021-01-23] MEDS: OXYTOCIN 20 UNITS in 0.9% NS 20 UNIT/1,000 ML INFUS.BAG IV SCH (21:27)
[2021-01-23] MEDS: ELECTROLYTE-148 SOLN 1,000 ML IV SCH (21:27)
[2021-01-23] MEDS: SENNOSIDES/DOCUSATE COMBO (SENNA PLUS) TABLET (UD) PO PRN (21:39)
[2021-01-24] MEDS: ACETAMINOPHEN 325 MG TABLET (FP) PO PRN ×3 (01:58→14:51)
[2021-01-24] MEDS: IBUPROFEN 600 MG TABLET (FP) PO PRN ×3 (01:59→14:51)
[2021-01-24 08:55] LABS: BASO % 0.3 % (0-2.0); EOS % 2.3 % (0-4.5); HEMATOCRIT 31.4 % (32.4-45.2); HEMOGLOBIN 9.9 GM/dL (10.7-15.3); LYMPH % 19.1 % (8-40); MCH 25.3 pg (25.7-33.7); MCHC 31.6 g/dl (32.0-36.0); MEAN CELL VOLUME 80.2 fl (80-96); MEAN PLT VOLUME 10.1 fl (7.5-11.1); NEUT % 72.3 % (42.8-82.8); PLATELET COUNT 280 10^3/uL (134-434); RBC 3.91 M/mm3 (3.60-5.2); RDW 17.5 % (11.6-15.6)
[2021-01-24 09:39] VITALS: BP 119/72; PULSE 81; TEMP 99.4
[2021-01-24] MEDS: FERROUS SO4 325 MG TABLET (FP) PO SCH (10:52)
[2021-01-24] MEDS: PRENATAL VITAMINS W/ FOLIC ACID TABLET (FP) PO SCH (10:53)
[2021-01-24] MEDS: SIMETHICONE 80 MG TAB.CHEW (FP) PO PRN (14:51)
== END 2021-01-24 17:45 | disposition home or self-care (01) | DRG 540 ==
LOC: JLDR 15:11 → J3W 01-21 04:45
PROVIDERS: ADMIT Obstetrics & Gynecology; ATTEND Obstetrics & Gynecology
PROC: 10D00Z1 Extraction of Products of Conception, Low, Open Approach (ICD-10-PCS; principal; 2021-01-21)
DX: O34.219 Maternal care for unspecified type scar from previous cesarean delivery (principal); O42.02 Full-term premature rupture of membranes, onset of labor within 24 hours of rupture; Z3A.38 38 weeks gestation of pregnancy; Z37.0 Single live birth; Z87.09 Personal history of other diseases of the respiratory system; Z86.59 Personal history of other mental and behavioral disorders
CPT/HCPCS: 36415; 36600; 80048; 82803; 85025; 85610; 85730; 86780; 86850; 86900; 86901; C9803; U0003; U0005